=== PATIENT | female | born 1965 | race Caucasian/White ===

== ENCOUNTER → 2020-11-01 | Outpatient (CLI) | payer OTHER ==
[~2020-11-01] MED LIST: ARIMIDEX 1 MG TA1 MG PO; CEFUROXIME500 MG PO; CYCLOBENZAPRINE10 MG PO; D3-200050 MCG PO; DOXYCYCLINE HY100 M2 PO; EFFEXOR XR150 MG PO; LEVAQUIN750 MG PO; MEDROL4 MG PO; OXCARBAZEPINE150 MG PO; PREDNISONE10 MG PO; PRINIVIL10 MG PO; PROAIR DIGIHAL90 MCG INH; PROPRANOLOL HCL10 MG PO; ROXICODONE5 MG PO; SINEQUAN CAP 2525 MG PO; SYMBICORT 16010.2 GM INH; VENTOLIN HFA 66.7 GM INH; VITAMIN B-125000 MCG SL
== END ==
LOC: KOH-I 10-10 14:00
DX: F17.210 Nicotine dependence, cigarettes, uncomplicated (principal)
CPT/HCPCS: 71271